=== PATIENT | female | born 1980 | race Caucasian/White ===

== ENCOUNTER 2024-07-24 22:12 | Emergency (ER) | payer BC, SELFPAY ==
[2024-07-24 22:16] VITALS: BP 144/96
[2024-07-24 22:37] LABS: % Basophils 0.6 % (0-2); % Immature Granulocytes 0.4 % (0-0.5); % Lymphocytes 19.1 % (20.5-51.1); % Monocytes 9.5 % (1.7-9.3); % Neutrophils 69.4 % (42.2-75.2); Absolute Eosinophils 0.1 10^3/uL (0-0.7); Absolute Lymphocytes 1.4 10^3/uL (1.2-3.4); Absolute Monocytes 0.7 10^3/uL (0.1-0.6); Hematocrit 36.3 % (37.0-47.0); Hemoglobin 12.3 g/dL (12.0-16.0); Mean Corp Hgb Conc. 33.9 g/dL (33.0-37.0); Mean Corpuscular Hgb 30.8 pg (27.0-31.0); Mean Corpuscular Volume 90.8 fL (81.0-99.0); Mean Platelet Volume 9.2 fL (7.4-10.4); Nucleated Red Blood Cells % 0 %; Platelet Count 262 10^3/uL (130-400); Red Cell Dist. Width 12.3 % (11.5-14.5); White Blood Cell Count 7.2 10^3/uL (4.8-10.8)
[2024-07-24 22:56] LABS: ALT (SGPT) 220 U/L (0-35); AST (SGOT) 214 U/L (14-36); Albumin 4.1 g/dl (3.5-5.0); Alkaline Phosphatase 162 U/L (38-126); Blood Urea Nitrogen 13 mg/dl (7-17); Calcium 9.2 mg/dl (8.4-10.2); Carbon Dioxide 27 mmol/L (22-30); Chloride 102 mmol/L (98-107); Glucose 102 mg/dl (70-99); Potassium 4.3 mmol/L (3.5-5.1); Sodium 140 mmol/L (135-145); Total Bilirubin 0.4 mg/dl (0.2-1.3); eGFR > 60.00
[2024-07-24 22:59] LABS: COVID-19 Antigen Negative (Negative)
[2024-07-25 00:22] VITALS: BP 126/80
--- NOTE | 2024-07-25 00:54 | ED.GENMED ---
History of Present Illness
<CATHIE Wren - Last Filed: 07/25/24 01:36>
General
Chief Complaint: Cold/Flu/URI Symptoms
Time Seen by Provider: 07/25/24 00:54
History of Present Illness
History of Present Illness:
Patient is a 44 year old female presenting to the ED complaining of a cough x 10 days. She states the cough was productive for the first 5 days with a green sputum, denies blood. The last 5 days the cough has been dry. The cough has been constant to
the point where she lost her voice and admits to associated fever, headache, fatigue, sob, chest tightness. All of the symptoms came on at once 10 days go. She had a telehealth meeting 3 days ago where she was given Augmentin and a steroid which did
not help symptoms. She states she has had URIs before, but never to this length or severity. Her sob is mild. Patient denies changes in bowel movements, changes in urinary frequency, sore throat, ear pain, eye itchiness.
She has had UTIs in hte past but nothing to this extent. Patient claims she had a recent sick contact with her daughter who had a virus 2 weeks ago. She admits to seasonal allergies
Review of Systems
<CATHIE Wren - Last Filed: 07/25/24 01:36>
Review of Systems
Constitutional: Reports fever, fatigue and sleep disturbance
EENT: Reports runny nose (congested )
Respiratory: Reports cough and trouble breathing
Cardiac: Reports chest pain (chest tightness)
ABD/GI: Reports no symptoms
: Reports no symptoms
Skin: Reports no symptoms
Neurological: Reports headache and weakness
Phy Exam
<CATHIE Wren - Last Filed: 07/25/24 01:36>
General Physical Exam
General Presentation: moderate distress
General age: appears stated age
General Habitus: normal
General Mental: alert
General Hydration: dry mucous membranes
ENT Exam
ENT Exam: pharynx normal, normocephalic, lymphnodes (no adenopathy) and swallowing well
Cardiovascular Exam
Cardiovascular Exam: regular rate/rhythm, no edema, no gallop, no JVD and no murmur
Pulmonary Exam
Pulmonary Exam: no respiratory distress, chest non tender, no crackles, no stridor, no wheezing and decreased breath sounds
Breath Sounds: Rhonchi: right upper (right middle lobe rhonchi )
Course
<ST HolgerHI - Last Filed: 07/25/24 01:36>
Orders/Labs/Results
Orders:
Orders
07/24/24 22:19
CR Chest - 2 Views Urgent
Comment:
Reason For Exam: SOB
07/24/24 22:25
Throat Culture [Throat Culture, Comprehensive] Urgent
NANCY Source: Throat/Pharynx
Specimen Description:
Date Specimen was Collected: 07/24/24
Time Specimen was Collected: 22:26
07/24/24 22:28
COVID-19 Antigen Urgent
Source: Nasal Swab
Complete Blood Count/With Diff Urgent
Comprehensive Metabolic Panel Urgent
Influenza A+B Rapid Molecular Urgent
NANCY Source: Nasal Swab
Specimen Description:
Date Specimen was Collected: 07/24/24
Time Specimen was Collected: 22:20
Rapid Strep Group A Urgent
NANCY Source: Throat/Pharynx
Specimen Description:
Date Specimen was Collected: 07/24/24
Time Specimen was Collected: 22:20
07/25/24 01:31
Acetaminophen [Tylenol] 1,000 mg PO NOW STA
Doxycycline [Vibramycin] 100 mg PO NOW STA
Guaifenesin/Codeine Solution [Robitussin AC] 10 ml PO NOW STA
Abnormal Lab Results
07/24/24
22:28
RBC 4.00 L 10^6/uL
(4.20-5.40)
Hct 36.3 L %
(37.0-47.0)
Absolute Monos (auto) 0.7 H 10^3/uL
(0.1-0.6)
Lymphocytes % 19.1 L %
(20.5-51.1)
Monocytes % 9.5 H %
(1.7-9.3)
Glucose 102 H mg/dl
(70-99)
AST 214 H U/L
(14-36)
ALT 220 H U/L
(0-35)
Alkaline Phosphatase 162 H U/L
(38-126)
07/24/24 22:28
07/24/24 22:28
Vital Signs
Initial and Last Documented VS:
Initial Vital Signs
Temp Pulse Resp BP Pulse Ox
99.3 F 96 18 144/96 97
07/24/24 22:16 07/24/24 22:16 07/24/24 22:16 07/24/24 22:16 07/24/24 22:16
Last Documented Vital Signs
Temp Pulse Resp BP Pulse Ox
99.3 F 96 18 126/80 95
07/24/24 22:16 07/24/24 22:16 07/24/24 22:16 07/25/24 00:22 07/25/24 00:49
<Pat Carroll, DO - Last Filed: 07/25/24 01:50>
Orders/Labs/Results
Orders:
Orders
07/24/24 22:19
CR Chest - 2 Views Urgent
Comment:
Reason For Exam: SOB
07/24/24 22:25
Throat Culture [Throat Culture, Comprehensive] Urgent
NANCY Source: Throat/Pharynx
Specimen Description:
Date Specimen was Collected: 07/24/24
Time Specimen was Collected: 22:26
07/24/24 22:28
COVID-19 Antigen Urgent
Source: Nasal Swab
Complete Blood Count/With Diff Urgent
Comprehensive Metabolic Panel Urgent
Influenza A+B Rapid Molecular Urgent
NANCY Source: Nasal Swab
Specimen Description:
Date Specimen was Collected: 07/24/24
Time Specimen was Collected: 22:20
Rapid Strep Group A Urgent
NANCY Source: Throat/Pharynx
Specimen Description:
Date Specimen was Collected: 07/24/24
Time Specimen was Collected: 22:20
07/25/24 01:31
Acetaminophen [Tylenol] 1,000 mg PO NOW STA
Doxycycline [Vibramycin] 100 mg PO NOW STA
Guaifenesin/Codeine Solution [Robitussin AC] 10 ml PO NOW STA
Abnormal Lab Results
07/24/24
22:28
RBC 4.00 L 10^6/uL
(4.20-5.40)
Hct 36.3 L %
(37.0-47.0)
Absolute Monos (auto) 0.7 H 10^3/uL
(0.1-0.6)
Lymphocytes % 19.1 L %
(20.5-51.1)
Monocytes % 9.5 H %
(1.7-9.3)
Glucose 102 H mg/dl
(70-99)
AST 214 H U/L
(14-36)
ALT 220 H U/L
(0-35)
Alkaline Phosphatase 162 H U/L
(38-126)
07/24/24 22:28
07/24/24 22:28
Vital Signs
Initial and Last Documented VS:
Initial Vital Signs
Temp Pulse Resp BP Pulse Ox
99.3 F 96 18 144/96 97
07/24/24 22:16 07/24/24 22:16 07/24/24 22:16 07/24/24 22:16 07/24/24 22:16
Last Documented Vital Signs
Temp Pulse Resp BP Pulse Ox
99.3 F 96 18 126/80 95
07/24/24 22:16 07/24/24 22:16 07/24/24 22:16 07/25/24 00:22 07/25/24 00:49
<CATHIE Wren - Last Filed: 07/25/24 01:36>
MDM/Problems Addressed
Differential Diagnosis Includes:
pneumonia, bronchitis
MDM/Problems Addressed:
tylenol for fever and pain, cxr shows right middle lobe pneumonia, give abx
<CATHIE Wren - Last Filed: 07/25/24 01:36>
*Critical Care Note
Total Time (30-74mins, 75-104mins- exclusive of procedures): Not Applicable
<Pat Carroll DO - Last Filed: 07/25/24 01:50>
*Radiology
Radiology exam reviewed: radiology read reviewed
*Pulse Oximetry
Patient hypoxic: no
ED Attending Note
<CATHIE Wren - Last Filed: 07/25/24 01:36>
-
Portions of this chart may have been created with voice recognition software.� Occasional wrong word or��sound alike� substitutions may have occurred due to the inherent limitations of voice recognition software.
<Pat Carroll DO - Last Filed: 07/25/24 01:50>
ED Attending Note
Patient seen and examined by attending physician: Yes
I performed the substantive portion of visit, reviewed & personally made and approve the management plan that is documented in note by myself or NATHEN.: Yes
ED Attending Note:
This is a 44-year-old woman with no significant past medical history save for seasonal allergies, only maintained on Xyzal who complains of 10-day history of URI symptoms, cough, sore raspy throat, fever. Initially evaluated with telehealth
appointment 1 week ago, treated with albuterol inhaler, Medrol Dosepak, Tessalon Perles. No improvement with these remedies. She was then evaluated at [facility] 3 days ago and was prescribed Augmentin. She continues with cough, initially
productive but over the past 3 days has been dry, hacking. She continues with low-grade fever, fatigue, hoarse voice. Mildly decreased appetite and 1 episode of posttussive vomiting. She denies abdominal nor back pain, no chest pain, no shortness
of breath. Cough is worse at nighttime accompanied with difficulty sleeping.
Thus far no significant improvement in cough with Tessalon Perles, a cough syrup, prednisone.
Lifelong non-smoker.
No history of asthma nor chronic lung disease. No history of immunocompromise.
No recent travel.
Denies risk of .
GENERAL: 44-year-old woman appears her stated age, awake and alert, mildly ill in appearance, moderately hoarse voice but able to speak in full sentences. No respiratory distress. Rare brief dry cough noted on exam. Low-grade fever of 99.6 �F.
Pulse ox 96 to 97% on room air.
EYE: . anicteric
NECK: Supple, nontender, no meningismus, no significant adenopathy.
ENT: posterior pharynx is clear, oral mucosa is moist. Lips are mildly dry. TM clear b/l, nares patent.
CARDIAC: Regular rate and rhythm. no murmur.
LUNGS: no acute respiratory distress, fine rhonchi and mildly decreased breath sounds right anterior lung love otherwise clear to auscultation.
ABDOMEN: Soft, nondistended, without focal tenderness, no r/g, no cvat. normoactive BS.
NEUROLOGICAL: Alert and oriented x3, no focal neuro deficits. Gait is steady.
SKIN: Warm and dry, normal color, skin intact. No rash.
MUSCULOSKELETAL: No C/C/E. peripheral pulses are full and equal b/l. No palpable tenderness.
PSYCH: Normal and appropriate interaction.
Concern for bronchitis, laryngitis, pneumonia, COVID-19.
Labs show normal white blood cell count, mildly elevated LFTs but otherwise unremarkable. COVID-19 is negative. Rapid strep and influenza are negative.
Chest x-ray shows right middle lobe infiltrate consistent with auscultatory findings.
Will broaden antibiotic coverage by adding doxycycline to cover atypicals and recommend continuing Augmentin.
Will add Robitussin with codeine for cough and recommend she continue albuterol inhaler as well.
Discussed importance of rest, Tylenol as needed for fever, stay well-hydrated on a daily basis, humidifier or vaporizer at nighttime.
Follow-up with PCP next week for recheck.
Return precautions discussed.
Discharge Plan
Departure
Patient Disposition: Home (Routine Discharge)
Date of Disposition: 07/25/24
Time of Disposition: 01:38
Patient with high blood pressure during this ER visit?: No
Condition: Good
Discharge Problem:
Community acquired pneumonia
Instructions: Community-acquired pneumonia in adults
Prescriptions:
New
doxycycline monohydrate 100 mg capsule
100 mg PO BID Qty: 20 1RF
Coditussin AC 10-200 mg/5 mL liquid
10 ml PO QIDPRN PRN (Reason: Cough) Qty: 240 0RF
No Action
ibuprofen 200 mg Tablet
600 mg PO Q6H PRN (Reason: PAIN)
magnesium 500 mg Tablet
15 mg PO HS
levocetirizine [Xyzal] 5 mg Tablet
5 mg PO HS
Cbd
1 tab PO DAILY
Mucinex DM
1 tab PO Q12H PRN (Reason: cough)
Referrals:
Claudia Saucedo MD [Family Provider] - Call in 1-3 days for appt
Interventions
Interventions:
*Risk Screen - Suicide Last Done: 07/24/24 22:14
*General Assessment Last Done: 07/24/24 22:16
ED- Pulmonary Assessment Last Done: 07/25/24 00:49
Discharge Date and Time
Print Language: HAITIAN
[2024-07-25 01:00] VITALS: BP 124/91
[2024-07-25] MEDS: TYLENOL 1000 MG PO (01:38)
[2024-07-25] MEDS: ROBITUSSIN AC 10 ML PO (01:39)
[2024-07-25] MEDS: VIBRAMYCIN 100 MG PO (01:39)
[2024-07-25 01:40] VITALS: BMI 22.8
== END 2024-07-25 01:44 | disposition home or self-care (01) ==
LOC: EMR 22:12
PROVIDERS: Student in an Organized Health Care Education/Training Program; EMERGENCY PHYSICIAN Emergency Medicine; FAMILY PHYSICIAN Family Medicine
DX: J18.9 Pneumonia, unspecified organism (principal); R51.9 Headache, unspecified; R49.0 Dysphonia; R11.10 Vomiting, unspecified; Z11.52 Encounter for screening for COVID-19; Z87.440 Personal history of urinary (tract) infections; Z91.048 Other nonmedicinal substance allergy status
CPT/HCPCS: 99283; 71046; 80053; 85025; 87070; 87502; 87811; 87880

== ENCOUNTER → 2024-08-11 11:11 | Outpatient (REF) | payer OTHER, SELFPAY | LOC: HWRAD 11:11 | PROVIDERS: ATTENDING PHYSICIAN Family Medicine | DX: J18.9 Pneumonia, unspecified organism (principal) | CPT/HCPCS: 71046 ==

== ENCOUNTER → 2024-09-01 10:36 | Outpatient (REF) | payer OTHER, SELFPAY | LOC: HWRAD 10:36 | PROVIDERS: ATTENDING PHYSICIAN Family Medicine | DX: J18.9 Pneumonia, unspecified organism (principal) | CPT/HCPCS: 71046 ==

== ENCOUNTER → 2024-09-15 09:33 | Outpatient (REF) | payer OTHER, SELFPAY | LOC: HWWDC 09:33 | PROVIDERS: ATTENDING PHYSICIAN Family Medicine | DX: Z12.31 Encounter for screening mammogram for malignant neoplasm of breast (principal) | CPT/HCPCS: 77063; 77067 ==

== ENCOUNTER → 2024-09-16 09:55 | Outpatient (REF) | payer OTHER, SELFPAY | LOC: HWRAD 09:55 | PROVIDERS: ATTENDING PHYSICIAN Family Medicine | DX: J18.9 Pneumonia, unspecified organism (principal) | CPT/HCPCS: 71260; Q9967 ==

== ENCOUNTER → 2025-04-08 10:33 | Outpatient (REF) | payer OTHER, SELFPAY | LOC: HWRAD 10:33 | PROVIDERS: FAMILY PHYSICIAN Family Medicine | DX: N92.1 Excessive and frequent menstruation with irregular cycle (principal) | CPT/HCPCS: 76830; 76856 ==